=== PATIENT | female | born 1960 | race Caucasian/White ===

== ENCOUNTER → 2017-01-29 | Day surgery (SDC) | payer OTHER ==
[2017-01-27 10:59] VITALS: BMI 21.7
[~2017-01-29] MED LIST: MIDAZOLAM 2 MG/2 ML VIAL ONE; PROPOFOL 10 MG/ML 20 ML VIAL IV ONE; fentaNYL (PF) 50 MCG/ML 2 ML AMP ONE
[2017-01-29 09:42] VITALS: RESP 16; TEMP 97.5
[2017-01-29] MEDS: LACTATED RINGERS 1,000 ML IV SCH ×2 (09:56→09:59)
--- NOTE | 2017-01-29 10:19 | P.PCN ---
Date of Procedure: 01/29/17 Procedure(s) Performed: BRIEF HISTORY: Patient is a 56-year-old pleasant white female, scheduled for an elective colonoscopy as a part of screening for colorectal neoplasia. Patient states that she had an attempted colonoscopy 6 years ago and was not successful. PROCEDURE PERFORMED: Attempted Colonoscopy. PREOPERATIVE DIAGNOSIS: Screening for colon cancer. IV sedation per Anesthesia. PROCEDURE: After informed consent was obtained, the patient, was brought into the endoscopy unit. IV conscious sedation was administered by Anesthesia under continuous monitoring. Initially the Olympus CF-160 flexible video colonoscope was then inserted in the rectum, gradually advanced into the cecum and there was an acute angle duration this area and despite multiple attempts and abdominal pressure, scope could not be advanced any further. At this time I decided to abort the procedure and the patient tolerated the procedure well. Few scattered sigmoid diverticulosis seen. IMPRESSION: Scattered sigmoid diverticula cyst Scope could not be advanced beyond the sigmoid colon because of acute angulation in this area ,hence procedure terminated. RECOMMENDATIONS: Findings of this examination were discussed with the patient as well as a family. He'll be scheduled for a double contrast barium enema today to evaluate the rest of the colon.
[2017-01-29 10:48] VITALS: BP 104/67; PULSE 76
--- NOTE | 2017-01-30 12:02 | FL ---
EXAMINATION TYPE: FL barium enema DATE OF EXAM: 01/29/2017 1:19 PM COMPARISON: NONE HISTORY: Incomplete colonoscopy TECHNIQUE: A single contrast barium enema study is performed. FINDINGS: Sports Equipment Repairer view of the abdomen shows overall non-obstructive bowel gas pattern. Contrast was refluxed through the colon to the terminal ileum. No persistent filling defects or focal areas of narrowing are evident. Diverticular changes are through the redundant sigmoid colon. IMPRESSION: 1. Diverticulosis sigmoid colon.
--- NOTE | 2017-02-02 12:19 | CDI ---
Dear Dr. Perez, The operative report documents IV sedation per Anesthesia in on area and then under Procedure IV conscious sedation is documented. On the Anesthesia Record, however, GA/Unconscious/MAC anesthesia is documented. This is conflicting documentation that need clarification. Please clarify if the sedation provided Alla Araiza was Conscious/Moderate or GA/ Unconscious/MAC sedation. Please document this clarification as an addendum to the operative report. Thank you for your time, Karla Abraham,[facility] Outpatient Mobile Home Laborer [employer]
--- NOTE | 2017-02-16 05:05 | CDI ---
Dear Dr. Perez, The operative report documents IV sedation per Anesthesia in on area and then under Procedure IV conscious sedation is documented. On the Anesthesia Record, however, GA/Unconscious/MAC anesthesia is documented. This is conflicting documentation that need clarification. Please clarify if the sedation provided Alla Araiza was Conscious/Moderate or GA/ Unconscious/MAC sedation. Please document this clarification as an addendum to the operative report. Thank you for your time, Karla Abraham,[facility] Outpatient [employer] Information Architect [email or web address]
--- NOTE | 2017-02-19 11:50 | PCN ---
ADDENDUM TO PROCEDURE NOTE: General anesthesia was utilized instead of IV conscious sedation.
== END ==
LOC: ORWHC2ENDO 08:52 → EDSEX 10:15
PROVIDERS: ATTEND Internal Medicine Gastroenterology
DX: Z12.11 Encounter for screening for malignant neoplasm of colon (principal); K57.30 Diverticulosis of large intestine without perforation or abscess without bleeding; F17.200 Nicotine dependence, unspecified, uncomplicated; K21.9 Gastro-esophageal reflux disease without esophagitis; Z79.891 Long term (current) use of opiate analgesic; Z79.899 Other long term (current) drug therapy
CPT/HCPCS: 74270; J2250; J3010; J2704; G0121; 45378

== ENCOUNTER → 2017-06-14 | Outpatient (CLI) | payer OTHER ==
--- NOTE | 2017-06-15 11:05 | CT ---
EXAMINATION TYPE: CT abdomen pelvis w con DATE OF EXAM: 06/14/2017 COMPARISON: Outside study dated 06/20/2015 HISTORY: RLQ mass CT DLP: 943 mGycm CONTRAST: CT scan of the abdomen and pelvis is performed with Oral Contrast and with IV Contrast, patient injec mo with 100 mL of Omnipaque 300. FINDINGS: LUNG BASES-: No visible nodule. No infiltrate. LIVER/GB: No calcified gallstones. No space occupying hepatic lesion. Biliary tree is of normal ca liber. PANCREAS: No inflammation. No distinct mass. SPLEEN: No splenic enlargement. No lesion seen. ADRENALS: No nodule. No thickening. KIDNEYS/BLADDER: No hydronephrosis. No nephrolithiasis. No disctinct renal mass. Urinary bladder g rossly unremarkable. BOWEL: Normal appendix. Normal bowel caliber. No inflammation. Moderate sigmoid diverticulosis with out diverticulitis. GENITAL ORGANS: No gross abnormality. LYMPH NODES: No greater than 1cm abdominal or pelvic lymph nodes are appreciated. AORTA: No significant abnormality. OSSEOUS STRUCTURES: Severe degenerative changes lumbar spine. Grade 1 anterolisthesis L4 and L5. 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 IMPRESSION: 1. 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 2. Sigmoid diverticulosis without diverticulitis. 3. Degenerative changes lumbar spine.
== END | disposition home or self-care (01) ==
LOC: RADCTMAIN 09:16
PROVIDERS: ATTEND Family Medicine
DX: K57.30 Diverticulosis of large intestine without perforation or abscess without bleeding (principal)
CPT/HCPCS: 74177; Q9967

== ENCOUNTER → 2022-09-01 | Outpatient (CLI) | payer OTHER ==
--- NOTE | 2022-09-01 13:13 | BD ---
EXAMINATION TYPE: Axial Bone Density DATE OF EXAM: 09/01/2022 COMPARISON: NONE CLINICAL HISTORY: 62 years year old Female. ICD-10 CODE: M85.80 Other specified disorders of bone de nsity a Height: 65 Weight: 114.2 FRAX RISK QUESTIONS: Alcohol (3 or more units per day): SOMETIMES Family History (Parent hip fracture): NO Glucocorticoids (More than 3mos): NO History of Fracture in Adulthood: FEMUR, TIB-FIB, WRIST,KNEE Secondary Osteoporosis: 1. Type 1 Diabetes: NO 2. Hyperthyroidism: NO 3. Menopause before 45: YES 4. Malnutrition: SLIGHT IN STATURE 5. Chronic liver disease: NO Rheumatoid Arthritis: NO Current Tobacco Use: YES RISK FACTORS HISTORY OF: Hip Fracture (Right/Left): NO Spine Fracture: NO History of Wrist Fracture: LT WRIST When: AGE 47 Surgery to Spine/Hip(right/left)/Wrist (right/left): LT FEMUR, When: AGE 59 Family History of Osteoporosis: NO Active: YES Diet low in dairy products/other sources of calcium: YES Postmenopausal woman: YES Take estrogen and/or progesterone medications: NO Lost more than 2 inches in height since high school: YES Frequent falls: NO Poor Health: NO Hyperparathyroidism: NO Adrenal Insufficiency: NO MEDICATIONS: Prednisone or other steroids: NO Thyroid Medications: NO Osteoporosis Medications: NO Additional Medications: GABAPENTIN, OMEPRAZOLE, EXAM MEASUREMENTS: Bone mineral densitometry was performed using the [employer] System. Bone mineral density as measured about the Lumbar spine is: ----- L1-L4(G/cm2): 1.049 T Score Values are as follows: ----- L1: -1.7 ----- L2: -1.1 ----- L3: -1.6 ----- L4: 0.0 ----- L1-L4: -1.1 BASELINE STUDY Bone mineral density about the R hip (g/cm2): 0.729 T Score values are as follows: -----R Neck: -2.2 -----R Total: -2.3 BASELINE STUDY FRAX%s: The graph provided illustrates a 20.4%chance for a major osteoporotic fx and a 7.1% chance fo r the hips probability for fx in 10 years time. IMPRESSION: Osteopenia (T Score between -2.5 and -1). There is slightly increased risk of fracture and the patient may be considered for treatment. Re-Screen 2-5 years. NOTE: T-SCORE=SD OF THE YOUNG ADULT MEAN.
== END | disposition home or self-care (01) ==
LOC: RADBDWWP 12:16
PROVIDERS: ATTEND Family Medicine
DX: M85.89 Other specified disorders of bone density and structure, multiple sites (principal)
CPT/HCPCS: 77080